=== PATIENT | male | born 1955 | race Caucasian/White ===

== ENCOUNTER 2017-03-01 15:28 | Emergency (ER) | payer OTHER ==
[~2017-03-01] VITALS: Ht 172.7 cm; Wt 74.0 kg
[2017-03-01 15:33] VITALS: BP 137/96; PULSE 82; RESP 18; O2SAT 95
--- NOTE | 2017-03-01 16:43 | ED.REPORT ---
[facility]-Medication Refill Date of Service March 01, 2017 ED Provider: Enoch Cutler PA-C To is a 61-year-old male with a history of anxiety and seizure disorder presenting for medication refills. Patient states he has been out of his clonazepam for a week for which he takes for anxiety. Reports he has not slept in 6 days. He is established at the residency clinic but is unable to get a refill from them. He states that he recently missed an appointment. Denies physical complaints. Admits to thoughts of harming himself or others, but denies intention or compulsion. Nursing Notes Stated Complaint: NEEDS MEDICATION Chief Complaint: General Complaint Nursing Notes Reviewed: Yes Allergies: Coded Allergies: Penicillins (Verified Allergy, Unknown, 03/01/17) codeine (Verified Allergy, Unknown, 03/01/17) Scheduled PRN Hydroxyzine Pamoate (HydrOXYzine Pamoate) 50 Mg Capsule 50 MG PO TID PRN PRN For Anxiety General Time Seen by Provider: 16:22 Chief Complaint Ran out of medication, Need meds during travel Past Medical History Past Medical History Seizure disorder, anxiety Review of Systems Review of Systems Note: General: Denies fever, chills, malaise. HEENT: Denies congestion, headache, sore throat. Respiratory: Denies dyspnea, cough, shortness of breath, wheezing. Cardiovascular: Denies chest pain, palpitations. Gastrointestinal: Denies vomiting, diarrhea, abdominal pain. Genitourinary: Denies frequency, urgency, dysuria, hematuria. Otherwise as noted in HPI. Physical Exam General: Well appearing, well developed, well nourished, no acute distress. Irritable. Head: Atraumatic, normocephalic. Eyes: No scleral icterus or injection. No discharge. Vision grossly intact. ENT: Voice clear, hearing grossly intact. Respiratory: Regular rate and rhythm. Breath sounds present, clear to auscultation and equal bilaterally. No respiratory distress. No increased work of breathing, speaks in complete sentences. Cardiovascular: Regular rate and rhythm, without murmur, gallop or rub. No pedal edema. Skin: Warm and dry. Neurological: Grossly nonfocal. Psychological: Alert and oriented. Speech appropriate, linear and logical. Quite irritable, avoids eye contact. Initial Vital Signs Vital Signs (First) Date Time Temp Pulse Resp B/P Pulse Ox O2 Delivery O2 Flow Rate FiO2 03/01/17 15:33 36.7 82 18 137/96 95 Initial VS: Vital signs abnormal (elevated blood pressure) Re-Evaluation & [facility] Med Decision/Clinical Course 61-year-old male presenting for refill of his medications. He is seeking clonazepam for anxiety and insomnia. He is highly resistant to questioning. Reports he has been out of his medications for 1 week, states he has not slept in 6 days. Complaining of increasing anxiety. Patient is established at the residency clinic, but his doctor has not refilled his medications and he missed a recent appointment. Declines to meet with certified social workers in health care. Repeatedly states "I just need my medications." Irritable and avoids eye contact. When asked directly, he admits to thoughts of self-harm or harming others but denies compulsions or intention. Denies physical complaints. I informed him that I am not comfortable filling controlled medications out of the emergency department and offered hydroxyzine as an alternative. The patient grudgingly accepts this. I asked the patient to follow-up with his primary care provider and he informed his primary care provider has been fired. Declined referral. Patient assures me he will not hurt himself or others, and can return to emergency department if situation changes. Advised primary care follow-up, provided emergency return precautions. Patient verbalizes understanding of and consent to the plan. Patient Discharge & Departure Impression: Primary Impression: Anxiety Disposition: Home Discharge Condition All VS Reviewed: Yes Condition: Stable Additional Instructions: I am sorry I cannot provide you with a clonazepam refill. I will write to instead a prescription for hydroxyzine 50 mg. Please take 1- 2 of these up to every 8 hours to help with your symptoms of anxiety and insomnia. Please do not drink alcohol or drive a vehicle within 4 hours of taking this medication. Please contact your primary care provider or establish with a new primary care provider to arrange refills of your usual medications. Return to emergency department for any new or worsening symptoms including a compulsion act on thoughts of harming yourself or others, uncontrollable anxiety. Referrals: [facility] EDSupervising Provider for APC: Benjamin Lyle MD copies to: [facility] Enoch Cutler PA-C March 01, 2017 16:43
[2017-03-01] MEDS ORDERED: HYDR50CA3 PO (16:44)
[2017-03-01 16:49] VITALS: BP 137/96; PULSE 82; RESP 18; O2SAT 95
== END 2017-03-01 16:49 | disposition home or self-care (01) ==
LOC: SED 15:28
DX: F41.9 Anxiety disorder, unspecified (principal); Z88.0 Allergy status to penicillin; Z88.5 Allergy status to narcotic agent